=== PATIENT | female | born 1955 | race Caucasian/White ===

== ENCOUNTER 2019-02-11 03:23 | Emergency (ER) | payer BC ==
[2019-02-11] MEDS: IBUPROFEN 600 MG TAB PO (04:47)
== END 2019-02-11 05:30 | disposition home or self-care (01) ==
LOC: FTE 03:23
DX: M79.604 Pain in right leg (principal); M79.651 Pain in right thigh; I10 Essential (primary) hypertension; Z79.82 Long term (current) use of aspirin
CPT/HCPCS: 73502; 73510; 73550; 73552; 93971; 99284-25